=== PATIENT | female | born 1975 | race African-American/Black ===

== ENCOUNTER 2021-10-21 10:50 | Outpatient (CLI) | payer OTHER, SELFPAY ==
--- NOTE | ~2021-10-21 | US_ITS ---
EXAMINATION: US transvaginal DATE: 10/21/2021 11:52 INDICATION: Family history of ovarian cancer TECHNIQUE: Multiple endovaginal sonographic images of the pelvis were obtained. COMPARISON: None. FINDINGS: The uterus measures 8.9 x 4.6 x 4.9 cm. The endometrial complex measures 14 mm. The right o vary measures 1.9 x 1.3 x 1.1 cm. The left ovary measures 2.4 x 2.4 x 2.2 cm and contains a 1.[address], considered normal in a reproductive age female. There is normal vascular flow in the ovaries. The re is no free fluid in the pelvis. IMPRESSION: 1. Unremarkable pelvic ultrasound. Reviewed, dictated and finalized at location A. GER BRANCH
== END 2021-10-21 10:51 ==
PROVIDERS: Visit Provider Nurse Practitioner
DX: Z80.41 Family history of malignant neoplasm of ovary (principal)
CPT/HCPCS: 76830

== ENCOUNTER → 2021-11-08 11:48 | Outpatient (CLI) | payer OTHER, SELFPAY ==
--- NOTE | ~2021-11-08 | MM_ITS ---
EXAMINATION: MM screening [facility]ae BI w hardik HISTORY: Screening TECHNIQUE: Craniocaudal and mediolateral oblique 3-D tomosynthesis images were obtained and synthetic 2-D images were generated. CAD analysis was submitted and interpreted. COMPARISON: Comparison to multiple prior studies sequentially, with oldest reviewed study dated 10/27. BREAST PARENCHYMAL COMPOSITION: The breasts are almost entirely fatty. FINDINGS: There is no evidence of suspicious mass, calcification, or architectural distortion to sugg est malignancy in either breast. There has been no suspicious interval change. IMPRESSION: 1. No mammographic evidence of malignancy. 2. Recommend routine screening mammography in one year. BI-RADS Category 1: Negative Reviewed, dictated and finalized at location A. SMISSION MECHANIC
== END ==
PROVIDERS: Visit Provider Nurse Practitioner
DX: Z12.31 Encounter for screening mammogram for malignant neoplasm of breast (principal)
CPT/HCPCS: 77063; 77067

== ENCOUNTER → 2023-01-17 13:11 | Outpatient (CLI) | payer OTHER, SELFPAY ==
--- NOTE | ~2023-01-17 | US_ITS ---
EXAMINATION: US pelvic complete DATE: 01/17/2023 14:20 INDICATION: Family history of ovarian cancer. Comparison:Ultrasound dated 10/21/2021 TECHNIQUE: Multiple transabdominal and endovaginal sonographic images of the pelvis performed. FINDINGS: The uterus measures 8 x 4.5 x 5.6 cm. The endometrial complex measures 1.6 cm. The right ovary measures 2.4 x 1.5 x 1.5 cm and the left ovary measures 2.3 x 2.5 x 3.5 cm. There is a 1.9 cm left ovarian cyst. There are small follicles in each ovary. Normal doppler signal in both ov linus. There is no free fluid in the pelvis. There are no abnormal masses seen on either side. IMPRESSION: 1. Endometrial thickening measuring 1.6 cm. 2: Simple left ovarian cyst measuring 1.9 cm. Reviewed, dictated and finalized at location B.
--- NOTE | ~2023-01-17 | MM_ITS ---
EXAMINATION: MM screening [facility] BI w hardik HISTORY: Screening mammogram TECHNIQUE: Craniocaudal and mediolateral oblique 3-D tomosynthesis images were obtained and synthetic 2-D images were generated. CAD analysis was submitted and interpreted. COMPARISON: 11/08/2021, 10/27/2019, 07/24/2018 BREAST PARENCHYMAL COMPOSITION: The breasts are almost entirely fatty. FINDINGS: No suspicious mass, calcification, or architectural distortion are identified in either nena ast to suggest malignancy. There has been no suspicious interval change. IMPRESSION: 1. No mammographic evidence of malignancy. 2. Recommend routine screening mammography in one year. BI-RADS Category 1: Negative Reviewed, dictated and finalized at location A.
== END ==
PROVIDERS: PCP Internal Medicine; Visit Provider Nurse Practitioner
DX: Z12.31 Encounter for screening mammogram for malignant neoplasm of breast (principal); Z80.41 Family history of malignant neoplasm of ovary; N83.202 Unspecified ovarian cyst, left side
CPT/HCPCS: 76856; 77063; 77067

== ENCOUNTER 2024-03-03 15:38 | Emergency (ER) | payer OTHER, SELFPAY ==
--- NOTE | ~2024-03-03 | XR_ITS ---
XR foot RT min 3V Ordering provider: Mariela Flower APRN History: . pain to right lateral foot after injury 2 weeks ago . Comparison: None. FINDINGS: BONES: No acute fracture or dislocation. Calcaneal spur. Ossification of the insertion of the tendo A chilles. JOINT SPACES: Normal. No tarsal coalition. SOFT TISSUES: Normal. IMPRESSION: No acute osseous abnormality of the right foot. Reviewed, dictated and finalized at location A.
[2024-03-03 15:49] VITALS: BP 129/87; PULSE 76; RESP 16; TEMP 36.4; O2SAT 100
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
== END 2024-03-03 16:28 | disposition home or self-care (01) ==
PROVIDERS: Emergency Provider Nurse Practitioner Family; PCP Internal Medicine
DX: M79.671 Pain in right foot (principal)
CPT/HCPCS: 73630; 99203; G0463

== ENCOUNTER 2024-04-11 07:57 | Outpatient (CLI) | payer OTHER, SELFPAY ==
--- NOTE | ~2024-04-11 | MM_ITS ---
EXAMINATION: MM screening nae BI w hardik HISTORY: Screening TECHNIQUE: Craniocaudal and mediolateral oblique 3-D tomosynthesis images were obtained and synthetic 2-D images were generated. CAD analysis was submitted and interpreted. COMPARISON: Comparison to multiple prior studies sequentially, with oldest reviewed study dated 10/27. BREAST PARENCHYMAL COMPOSITION: Not Dense: The breasts are almost entirely fatty. FINDINGS: There is no evidence of suspicious mass, calcification, or architectural distortion to sugg est malignancy in either breast. There has been no suspicious interval change. IMPRESSION: 1. No mammographic evidence of malignancy. 2. Recommend routine screening mammography in one year. BI-RADS Category 1: Negative Reviewed, dictated and finalized at location B.
== END 2024-04-11 07:58 | disposition home or self-care (01) ==
LOC: ANHIMG 07:57
PROVIDERS: PCP Internal Medicine; Visit Provider Internal Medicine
DX: Z12.31 Encounter for screening mammogram for malignant neoplasm of breast (principal)
CPT/HCPCS: 77063; 77067

== ENCOUNTER 2024-05-13 10:38 | Outpatient (CLI) | payer OTHER, SELFPAY ==
[2024-05-13 11:31] LABS: Vitamin D 25 Hydroxy 34.1 ng/mL
== END 2024-05-13 10:39 | disposition home or self-care (01) ==
PROVIDERS: PCP Internal Medicine; Visit Provider Nurse Practitioner Obstetrics & Gynecology
DX: Z00.00 Encounter for general adult medical examination without abnormal findings (principal)
CPT/HCPCS: 36415; 82306; 82607

== ENCOUNTER 2025-06-24 07:31 | Outpatient (CLI) | payer OTHER, SELFPAY ==
--- NOTE | ~2025-06-24 | MM_ITS ---
EXAMINATION: MM screening nae BI w hardik HISTORY: Screening TECHNIQUE: Craniocaudal and mediolateral oblique 3-D tomosynthesis images were obtained and synthetic 2-D images were generated. CAD analysis was submitted and interpreted. COMPARISON: Comparison to multiple prior studies sequentially, with oldest reviewed study dated , 11/08/2021 BREAST PARENCHYMAL COMPOSITION: The breasts are almost entirely fatty. FINDINGS: There is no evidence of suspicious mass, calcification, or architectural distortion to suggest malignancy in either breast. IMPRESSION: 1. No mammographic evidence of malignancy. 2. Recommend routine screening mammography in one year. BI-RADS Category 1: Negative Reviewed, dictated and finalized at location B.
--- OUTSIDE RECORDS SUMMARY | 2025-06-24 07:35 | XMS_ITS | Clinical Summary ---
Author Organization [facility] al Address [address] [place] [address] Care Team Providers Care It Compliance Analyst Name Role Phone Sarwat Mascorro MD Primary Care Provider [phone] Allergies No known active allergies Medications omeprazole (PriLOSEC) 20 mg capsule Take 20 mg by mouth daily as needed 2 Active fluticasone propionate (FLONASE) 50 mcg/actuation nasal spray Administer 1 spray into each nostril daily as needed 1 Active ibuprofen (ADVIL,MOTRIN) 600 mg tablet Take 1 tablet (600 mg total) by mouth every 6 (six) hours as needed for pain Take with food 30 tablet 2 Active cyclobenzaprine (FLEXERIL) 10 mg tablet Take 1 tablet (10 mg total) by mouth 2 (two) times a day as needed for muscle spasms 10 tablet 2 Active Additional Information Patient not taking.Reported on 08/29/2022 benzonatate (TESSALON) 100 mg capsuleIndicati ons:Cough Take 1 capsule (100 mg total) by mouth every 8 (eight) hours 21 capsule 2 Active Additional Information Patient not taking.Reported on 08/29/2022 guaiFENesin ER (MUCINEX) 600 mg 12 hr tablet Take 2 tablets (1,200 mg total) by mouth 2 (two) times a day 120 tablet 2 Active Additional Information Patient not taking.Reported on 08/29/2022 metFORMIN (GLUCOPHAGE) 500 mg tablet Take 1 tablet (500 mg total) by mouth 2 (two) times a day with meals Active hydrocortisone 2.5 % ointment Apply topically 2 (two) times a day 30 g Active Active Problems No known active problems Surgical History Surgery Date Site/Laterality Comments DILATION AND CURETTAGE OF UTERUS 09/03/1994 - 09/02/1995 TUBAL LIGATION COLONOSCOPY 09/03/2022 - 09/02/2023 Medical History Medical History Date Comments GERD (gastroesophageal reflux disease) Hyperlipidemia Family History Medical History Relation Name Comments Liver cancer Sister Stomach cancer Sister Relation Name Status Comments Sister Social History Tobacco Use Types Packs/Day Years Used Date Smoking Tobacco: Never Smokeless Tobacco: Never Tobacco Cessation:Counseling Given: Not Answered Alcohol Use Standard Drinks/Week Comments Yes 0 (1 standard drink = 0.6 oz pur e alcohol) occassionally AUDIT-C Answer Date Recorded Q1: How often do you have a drink containing alc ohol? Monthly or less 05/23/2024 Q2: How many drinks containi ng alcohol do you have on a typical day when you are drinking? 1 or 2 05/23/2024 Q3: How often do you have si x or more drinks on one occasion? Never 05/23/2024 Personal Safety Answer Date Recorded Have you ever been in or are you currently in a harmful physical or emotional relationship or is someone making you feel afraid or unsafe? Denies 03/04/2025 Comments No Sex and Gender Information Value Date Recorded Sex Assigned at Not on file Legal Sex Female 6:35 AM [employer] HAUL[employer] Gender Identity Not on file Sexual Orientation Not on file Obstetrics History Last Filed Vital Signs Vital Sign Reading Time Taken Comments Blood Pressure 114/74 03/04/2025 9:30 PM CDT Pulse 75 03/04/2025 9:30 PM CDT Temperature 36.9 C (98.4 F) 03/04/2025 6:34 PM CDT Respiratory Rate 20 03/04/2025 9:30 PM CDT Oxygen Saturation 100% 03/04/2025 9:30 PM CDT Inhaled Oxygen Concentration - - Weight 137.8 kg (303 lb 12.7 oz) 03/04/2025 6:34 PM CDT Height 162.6 cm (5' 4) 03/04/2025 6:34 PM CDT Body Mass Index 52.15 03/04/2025 6:34 PM CDT Plan of Treatment Health Maintenance Due Date Last Done Comments Cervical Cancer Screening 1976 Depression Screening 1976 Hepatitis C Screening 1976 Hepatitis B Screening 1994 Regular Well Visit/Exam 18-64 1994 Breast Cancer Screening-Mammogram 10/28/2020 10/28/2019 Covid-19 Vaccine ( season) 2025 03/02/2022, 09/29/2021, 09/01/2021, Additional history exists Influenza Vaccine (#1) 2025 DTaP/Tdap/Td Vaccine (2 - Td or Tdap) 11/25/2028 11/25/2018, 01/16/1992 Colon Cancer Screening-Colonoscopy 05/30/2034 05/30/2024, 09/08/2022 Pneumococcal vaccine <65 Aged Out No longer eligible based on patient's age to complete this topic Procedures Procedure Name Priority Date/Time Associated Diagnosis Comments COLONOSCOPY 05/30/2024 7:43 AM CDT from Last 3 Months or Most Recently Relevant to Health Maintenance Results * Colonoscopy (05/30/2024 7:43 AM CDT) Anatomical Region Laterality Modality Other Narrative Procedure Note Elizabeth Holcomb MD - 05/30/2024 7:43 AM CDT [facility] GI ENDOSCOPY Patient Name: Alan Aguero Procedure Date: 05/30/2024 7:43 AM Date of : 1975 Admit Type: Outpatient Age: 49 Gender: Female Attending MD: Elizabeth Holcomb M.D. Room: [facility] ENDOSCOPY ROOM 05 Note Status: Finalized Procedure: Colonoscopy Indications: Screening for colorectal malignant neoplasm Referring MD: Providers: Elizabeth Holcomb M.D. Medicines: See the Anesthesia note for documentation of the administered medications Complications: No immediate complications. Estimated Blood Loss: Estimated blood loss: none. Procedure: Pre-Anesthesia Assessment: - Prior to the procedure, a History and Physicalwas performed, and patient medications, allergies and sensitivities were reviewed. The patient'stolerance of previous anesthesia was reviewed. - The risks and benefits of the procedure and the sedation options and risks were discussed with the patient. All questions were answered and informed consent was obtained. The benefits, risks and alternatives of theprocedure and sedation were discussed and informed consentwas obtained. All questions were answered. Please referto the signed informed consent document in the medical record. The scope was passed under direct vision.The [id number]-[id number] colonoscope was introduced through theanus and advanced to the cecum, identified byappendiceal orifice and ileocecal valve. The colonoscopy was performed without difficulty. The patient tolerated the procedure well. The quality of the bowel preparation was good. The ileocecal valve,appendiceal orifice, and rectum were photographed. Prep was administered in a single dose. Findings: The perianal and digital rectal examinations were normal. Pertinent negatives include normal sphincter tone. The entire examined colon appeared normal on direct and retroflexion views. Impression: - The entire examined colon is normal on direct and retroflexion views. - No specimens collected. Recommendation: - Resume previous diet. - Continue present medications. - Repeat colonoscopy in 10 years. Elizabeth Holcomb M.D. Elizabeth Holcomb M.D. 05/30/2024 8:12:14 AM . Number of Addenda: 0 Note Initiated On: 05/30/2024 7:43 AM Recognized by the [employer] for promoting quality in endoscopy Elizabeth Holcomb MD ENDOSCOPY PROCEDURES Unique l Result from Last 3 Months or Most Recently Relevant to Health Maintenance Insurance [facility] H[facility]/PPO Address: [address] [address] [place] [address] [facility] [employer] [facility]/PPO Address: [address] [address] [place] [address] [facility] H[facility]/PPO Address: [address] [address] Care Teams It Compliance Analyst Relationship Specialty Start Date End Date Sarwat Mascorro MD [address] [facility] [address] [place] [address] PCP - General Internal Medicine 08/31/22
--- OUTSIDE RECORDS SUMMARY | 2025-06-24 07:35 | XMS_ITS | Clinical Summary ---
Author Organization [facility] Address [address] [place] [address] Care Team Providers Care Event Marketing Intern Name Role Phone Sarwat Mascorro MD Primary Care Provider [phone] Allergies No known active allergies Medications meclizine 25 MG tablet Take 25 mg by mouth 3 (three) times daily as needed. 1 01/30/2019 Active hydrOXYzine 25 MG tablet Take 25 mg by mouth 3 (three) times daily as needed. 1 01/30/2019 Active omeprazole 20 MG capsule Take 20 mg by mouth daily. 3 01/28/2019 Active Encounters Date Type Department Care Team Description 05/16/2025 9:20 AM CDT - 05/16/2025 11:59 PM T Hospital Encounter [facility] [address] Sarwat Mascorro MD Discharge Disposition: Home or Self Care (Routine Discharge) 05/16/2025 Orders Only [facility] [address] Sarwat Mascorro MD 05/16/2025 Travel from Last 3 Months Family History Medical History Relation Comments Diabetes Mother Hypertension Mother Relation Status Comments Mother Social History Tobacco Use Types Packs/Day Years Used Date Smoking Tobacco: Never Smokeless Tobacco: Never Alcohol Use Standard Drinks/Week Comments No 0 (1 standard drink = 0.6 oz pur e alcohol) Comments No Sex and Gender Information Value Date Recorded Sex Assigned at Female 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 Female 4:42 PM CDT Gender Identity Not on file Sexual Orientation Not on file Last Filed Vital Signs Vital Sign Reading Time Taken Comments Blood Pressure 111/78 02/13/2019 4:27 PM CDT Pulse 77 02/13/2019 4:27 PM CDT Temperature 36.6 C (97.8 F) 02/13/2019 4:27 PM CDT Respiratory Rate 20 02/13/2019 4:27 PM CDT Oxygen Saturation 99% 02/13/2019 4:27 PM CDT Inhaled Oxygen Concentration - - Weight 138.3 kg (305 lb) 02/13/2019 4:27 PM CDT Height 162.6 cm (5' 4) 02/13/2019 4:27 PM CDT Body Mass Index 52.35 02/13/2019 4:27 PM CDT Plan of Treatment Health Maintenance Due Date Last Done Comments Cervical Cancer Screening Pap Smear (Age 30 to 64) Every 3 Years 1976 Colorectal Cancer Screening Colonoscopy (10 Years) 1976 Annual Physical 1979 Hepatitis C 1994 Cervical Cancer Screening Pap with HPV Testing (Age 30 to 64) Every 5 Years 2006 Cervical Cancer Screening with HPV 2006 Mammogram Screening 2016 Hepatitis B Vaccines (2 of 3 - Hep B Twinrix 3-dose series) 04/14/2024 03/17/2024 COVID-19 Vaccine ( season) 2025 03/02/2022, 09/29/2021, 09/01/2021, Additional history exists Influenza Adult (#1) 2025 DTaP, Tdap and Td Vaccines (4 - Td or Tdap) 03/17/2034 03/17/2024, 11/25/2018, 01/16/1992 Hepatitis A Vaccines Aged Out 03/17/2024 No long er eligible based on patient's age to complete this topic Meningococcal B Vaccine Aged Out No l onger eligible based on patient's age to complete this topic Meningococcal Vaccine Aged Out No fantasma elian eligible based on patient's age to complete this topic Pneumococcal Vaccine: Pediatrics (0 to 5 Years) and At-Risk Patients (6 to 49 Years) Aged Out No longer eligible based on patient's age to complete this topic RSV Immunizations Under 20 Months Aged Out No longer eligible based on patient's age to complete this topic Procedures Procedure Name Priority Date/Time Associated Diagnosis Comments ESTROGEN, TOTAL Routine 05/16/2025 9:56 AM CDT Fatigue Cramp and spasm Other specified abnormal findings of blood chemistry Menopausal symptoms FSH, FOLLICLE STIM HORMONE Routine 05/16/2025 9:56 AM CDT Fatigue Cramp and spasm Other specified abnormal findings of blood chemistry Menopausal symptoms FREE T3 Routine 05/16/2025 9:56 AM CDT Fatigue Cramp and spasm Other specified abnormal findings of blood chemistry Menopausal symptoms THYROXINE, FREE (FT4) Routine 05/16/2025 9:56 AM CDT Fatigue Cramp and spasm Other specified abnormal findings of blood chemistry Menopausal symptoms THYROID STIM HORMONE TSH Routine 05/16/2025 9:56 AM CDT Fatigue Cramp and spasm Other specified abnormal findings of blood chemistry Menopausal symptoms MAGNESIUM Routine 05/16/2025 9:56 AM CDT Fatigue Cramp and spasm Other specified abnormal findings of blood chemistry Menopausal symptoms FOLIC ACID SERUM Routine 05/16/2025 9:56 AM CDT Fatigue Cramp and spasm Other specified abnormal findings of blood chemistry Menopausal symptoms VITAMIN B-12 Routine 05/16/2025 9:56 AM CDT Fatigue Cramp and spasm Other specified abnormal findings of blood chemistry Menopausal symptoms from Last 3 Months Results * VITAMIN B-12 (05/16/2025 9:56 AM CDT) VITAMIN B12 S/P/B 652 254 - 1,320 PG/ML 05/16/2025 11:21 AM CDT [facility] 05/16/2025 9:56 AM CDT us Sarwat Mascorro MD LABORATORY Final Result Performing Organization Address City/[facility]/ZIP Co de Phone Number [facility] [address] [place] [address], [place] [phone] * (ABNORMAL) FREE T3 (05/16/2025 9:56 AM CDT) FREE T3 1.9(L) 2.18 - 3.98 PG/ML 05/18/2025 8:06 AM CDT [facility] 05/16/2025 9:56 AM CDT us Sarwat Mascorro MD LABORATORY Final Result Performing Organization Address City/[facility]/ZIP Co de Phone Number [facility] [address] [place] [address], [place] [phone] * FSH, FOLLICLE STIM HORMONE (05/16/2025 9:56 AM CDT) FSH 11.5 MIU/ML 05/16/2025 11:[address] [facility] Comment: REFERENCE RANGES FOR FEMALES: FOLLICULAR 3.5-12.5 MID-CYCLE 4.7-21.5 LUTEAL 1.7-7.7 POSTMENOPAUSAL 25.8-134.8 05/16/2025 9:56 AM CDT us Sarwat Mascorro MD LABORATORY Final Result [facility] [address] [place] [address], [place] [phone] * ESTROGEN, TOTAL (05/16/2025 9:56 AM CDT) ESTROGEN TOTAL S/P/B 83 pg/mL 05/22/2025 1:26 AM CDT [facility] Comment: Reference Ranges for Total Estrogen: Follicular Phase: 51-601 Luteal Phase: 87-1194 Postmenopausal: < or = 214 Test performed by [facility] [address] [place] [address] Weather Reporter: Allyson Toledo MD,PHD,THU Test Reported by [facility], [facility], [address] [place] [address] Ziyad Lindsey M.D., Ph.D., Director of Laboratories , [facility] [id number] 05/16/2025 9:56 AM CDT us Sarwat Mascorro MD LABORATORY Final Result [facility] [address] [address], [place] [phone] * FOLIC ACID SERUM (05/16/2025 9:56 AM CDT) FOLATE 16.3 3.1 - 17.5 NG/ML 05/16/2025 11:[address] [facility] 05/16/2025 9:56 AM CDT us Sarwat Mascorro MD LABORATORY Final Result [facility] [address] [place] [address], [place] [phone] * THYROXINE, FREE (FT4) (05/16/2025 9:56 AM CDT) FREE T4 0.88 0.76 - 1.46 NG/DL 05/16/2025 11:[address] [facility] 05/16/2025 9:56 AM CDT us Sarwat Mascorro MD LABORATORY Final Result Performing Organization Address City/[facility] Co de Phone Number [facility] [address] [place] [phone], * THYROID STIM HORMONE TSH (05/16/2025 9:56 AM CDT) TSH 2.240 0.358 - 3.74 uIU/ML 05/16/2025 11:[address] [facility] Comment: HIGH DOSES OF BIOTIN MAY INTERFERE WITH THIS TEST RESULT. CORRELATION TO CLINICAL HISTORY AND PRESENTATION RECOMMENDED. 05/16/2025 9:56 AM CDT Sarwat Mascorro MD LABORATORY Final Result Performing Organization Address [facility] Co de Phone Number [facility] [address] [place] [phone], * MAGNESIUM (05/16/2025 9:56 AM CDT) MAGNESIUM 1.8 1.8 - 2.4 MG/DL 05/16/2025 11:[address] [facility] 05/16/2025 9:56 AM CDT us Sarwat Mascorro MD LABORATORY Final Result Performing Organization Address City/[facility] Co de Phone Number [facility] [address] [place] [phone], from Last 3 Months Insurance [employer] [id number] [place] [id number] [employer] Care Teams Event Marketing Intern Relationship Specialty Start Date End Date Sarwat Mascorro MD [address] [facility] [address] [place] [address] PCP - General INTERNAL MEDICINE 04/05/24
--- OUTSIDE RECORDS SUMMARY | 2025-06-24 07:35 | XMS_ITS | Patient Health Record ---
Author Organization [facility] Address [address] [place], [place] [id number] Care Team Providers Care Customer Experience Analyst Name Role Phone BOBO Jimenez Unavailable [phone] Sarwat Mascorro Unavailable Unavailable Reason For Referral No Information Plan Of Treatment No Information
== END 2025-06-24 07:32 | disposition home or self-care (01) ==
LOC: ANHFOHIMG 07:33
PROVIDERS: PCP Internal Medicine; Visit Provider Nurse Practitioner Obstetrics & Gynecology
DX: Z12.31 Encounter for screening mammogram for malignant neoplasm of breast (principal)
CPT/HCPCS: 77063; 77067

== ENCOUNTER 2025-08-20 13:43 | Outpatient (CLI) | payer OTHER, SELFPAY ==
--- NOTE | ~2025-08-20 | US_ITS ---
EXAMINATION: US pelvic complete w TV, 08/20/2025 13:45 DRAW IN HAND HISTORY: Z87.42 - Personal history of other diseases of the female... Comparison: None Technique: García-scale and color Doppler images were obtained. Findings: Uterus: Uterus anteverted 9.5 x 4.8 x 5.6 cm. . Endometrium 1.6 cm with a heterogeneous appearance and probable filling defect measuring 1 x 1 cm incompletely evaluated. Right Ovary:Right ovary 2 x 1.3 x 2.4 cm, no adnexal mass, normal flow. Left Ovary: Left ovary 2.2 x 1 x 1.17 cm, no adnexal mass, normal flow. Free Fluid: None Impression: Endometrial lesions possibly follicles but incompletely evaluated. Sonohysterogram/tissue sampling recommended Reviewed, dictated and finalized at location P. IN HAND Impression: Endometrial lesions possibly follicles but incompletely evaluated. Sonohysterog diogenes/tissue sampling recommended
== END 2025-08-20 13:44 | disposition home or self-care (01) ==
LOC: MICIMG 13:44
PROVIDERS: PCP Internal Medicine; Visit Provider Nurse Practitioner Obstetrics & Gynecology
DX: R14.0 Abdominal distension (gaseous) (principal); Z87.42 Personal history of other diseases of the female genital tract
CPT/HCPCS: 76830; 76856